=== PATIENT | male | born 1990 | race Caucasian/White ===

== ENCOUNTER 2016-12-24 00:26 | Emergency (ER) | payer OTHER ==
[2016-12-24 00:28] VITALS: BP 110/65; PULSE 84; RESP 16; TEMP 97.8; O2SAT 100
--- NOTE | 2016-12-24 01:27 | RADRPT ---
EXAM DATE/TIME: 12/24/2016 01:03 [facility] COMPARISON: No previous studies available for comparison. INDICATIONS : Foot pain. MEDICAL HISTORY : None. SURGICAL HISTORY : None. ENCOUNTER: Initial ACUITY: 1 day PAIN SCORE: 0/10 LOCATION: Right foot FINDINGS: Three view examination of the right foot demonstrates no soft tissue swelling, dislocation, or fractu re. The tarsal bones appear intact. The interphalangeal and metatarsophalangeal joints are intact. The calcaneus is intact. Bony mineralization is normal. CONCLUSION: No acute disease. Srinivasa Montenegro MD on December 24, 2016 at 1:26 Board Certified Radiologist. This report was verified electronically.
[2016-12-24] MEDS ORDERED: IBUP800T23 PO (01:59)
[2016-12-24] MEDS ORDERED: KETOROLAC TROMETHAMINE 60 MG/2 ML (IM) VIAL IM ONE (02:00)
--- NOTE | 2016-12-24 02:02 | PD ---
HPI Chief Complaint: Musculoskeletal Complaint Time Seen by Provider: 01:50 Travel History International Travel<30 days: No Contact w/Intl Traveler<30days: No Traveled to known affect area: No History of Present Illness HPI 26-year-old male presents for evaluation of right foot pain. Prior to arrival the patient reports that he was walking on some stairs when he twisted his right foot. He did not fall down the stairs. He's been having right foot pain since then. The pain is aching pain which is constant and worse when walking. He denies any other injuries and has no other complaints at this time. [facility] Social History Alcohol Use: No Tobacco Use: No Allergies-Medications (Allergen,Severity, Reaction): Coded Allergies: Pertussis Vaccine (Verified Allergy, Severe, Anaphylaxis, 12/24/16) Tetanus Toxoid (Verified Allergy, Severe, Anaphylaxis, 12/24/16) Reported Meds & Prescriptions Reported Meds & Active Scripts Active Ibuprofen 800 Mg Tab 800 Mg PO Q6HR PRN Review of Systems Musculoskeletal: Positive: Pain Skin: Positive Other (positive for soft tissue swelling) Physical Exam Narrative GENERAL: Well-developed well-nourished male in no acute distress SKIN: Warm and dry. There is mild soft tissue swelling the dorsal aspect of the right midfoot. Extremities; skin as noted above. There is some tenderness to palpation to the dorsal aspect of the right foot. The ankle is nontender. The patient is able to move his right foot toes and ankle without difficulty. 2+ dorsalis pedis pulse. Data Data Last Documented VS Vital Signs Date Time Temp Pulse Resp B/P Pulse Ox O2 Delivery O2 Flow Rate FiO2 12/24/16 00:28 97.8 84 16 110/65 100 Room Air Orders Ice/Cold Pack (12/24/16 00:40) Foot, Complete ([id number]) (12/24/16 00:40) Crutches (12/24/16 01:58) Ketorolac Inj (Toradol Inj) (12/24/16 02:00) MDM Medical Decision Making Medical Screen Exam Complete: Yes Emergency Medical Condition: Yes Medical Record Reviewed: Yes Differential Diagnosis Right foot strain, contusion, fracture, Lisfranc injury Narrative Course X-ray imaging obtained in triage were negative. The patient appears to have a strain to his right foot. He'll be discharged with a short course of ibuprofen as well as crutches. Diagnosis Primary Impression: Right foot strain Qualified Code: S96.911A - Strain of right foot, initial encounter Additional Instructions: Crutches as needed. Ibuprofen as needed. Take with meals. Ice pack several times a day 20 minutes at a time to the affected area. Follow-up with primary care physician in 2 weeks. Return for any emergent medical conditions. Med/Other Pt SpecificInfo: Prescription(s) given Scripts Ibuprofen 800 Mg Pym106 Mg PO Q6HR PRN (PAIN) #40 TAB Ref 0 Prov:Lilliam Early MD 12/24/16 Disposition: 01 DISCHARGE HOME Condition: Stable Alfredo Esqueda Dec 24, 2016 02:01
== END 2016-12-24 02:59 | disposition home or self-care (01) ==
LOC: NEPD 00:26
DX: S96.911A Strain of unspecified muscle and tendon at ankle and foot level, right foot, initial encounter (principal); X50.1XXA Overexertion from prolonged static or awkward postures, initial encounter
CPT/HCPCS: 73630; 96372; 99284; E0113; J1885

== ENCOUNTER 2017-02-13 23:13 | Emergency (ER) | payer OTHER ==
[~2017-02-13] VITALS: Ht 175.3 cm; Wt 85.0 kg
[~2017-02-13 23:13] MED LIST: IBUP800T23 PO
[2017-02-13 23:20] VITALS: BP 129/78; PULSE 95; RESP 16; TEMP 98.8; O2SAT 99
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
[2017-02-14] MEDS ORDERED: ULTR50TA5 PO (02:17)
[2017-02-14] MEDS ORDERED: AUGM875T3 PO (02:17)
[2017-02-14] MEDS ORDERED: PERI8.6T PO (02:17)
== END 2017-02-14 03:23 | disposition home or self-care (01) ==
LOC: NEPE 23:13
DX: S32.2XXA Fracture of coccyx, initial encounter for closed fracture (principal); J32.0 Chronic maxillary sinusitis; S00.83XA Contusion of other part of head, initial encounter; S00.12XA Contusion of left eyelid and periocular area, initial encounter; R51 Headache; F17.200 Nicotine dependence, unspecified, uncomplicated; V49.60XA Unspecified car occupant injured in collision with unspecified motor vehicles in traffic accident, initial encounter
CPT/HCPCS: 70450; 72220